=== PATIENT | male | born 1950 | race Caucasian/White ===

== ENCOUNTER → 2017-12-07 10:06 | Outpatient (CLI) | payer OTHER, SELFPAY | DX: Z23 Encounter for immunization (principal) | CPT/HCPCS: 90471; 90662 ==

== ENCOUNTER → 2020-04-16 09:59 | Outpatient (CLI) | payer OTHER, SELFPAY ==
[2020-04-16] MEDS: COVID-19 VACC #1, MRNA(MOD) 100 MCG/0.5 ML VIAL IM (10:02)
== END ==
PROVIDERS: PCP Family Medicine; Visit Provider Internal Medicine
DX: Z23 Encounter for immunization (principal)
CPT/HCPCS: 0011A; 91301

== ENCOUNTER → 2020-05-14 10:14 | Outpatient (CLI) | payer OTHER, SELFPAY ==
[2020-05-14] MEDS: COVID-19 VACC #2, MRNA(MOD) 100 MCG/0.5 ML VIAL IM (10:22)
== END ==
PROVIDERS: PCP Family Medicine; Visit Provider Internal Medicine
DX: Z23 Encounter for immunization (principal)
CPT/HCPCS: 0012A; 91301

== ENCOUNTER → 2020-06-29 08:54 | Outpatient (CLI) | payer OTHER, SELFPAY ==
[2020-06-29 09:34] LABS: Add Manual Diff / Slide Review NO; Basophils Absolute Auto 100 /uL (0-100); Basophils Percent Auto 1.1 % (0-2); Eosinophils Absolute Auto 300 /uL (0-450); Eosinophils Percent Auto 6.9 % (2-4); Hematocrit 47.7 % (41-53); Hemoglobin 16.4 g/dL (13.5-17.5); Lymphocytes Absolute Auto 1000 /uL (1100-4500); Lymphocytes Percent Auto 20.5 % (25-40); Mean Corpuscular HGB Conc 34.3 % (30-36); Mean Corpuscular Hemoglobin 31.6 PG (26-34); Mean Corpuscular Volume 92.1 fL (80-100); Monocytes Absolute Auto 400 /uL (0-900); Monocytes Percent Auto 9.3 % (3-14); Neutrophils Absolute Auto 3000 /uL (1500-7000); Neutrophils Percent Auto 62.2 % (50-75); Platelet Count 210 X10^3/uL (150-400); Red Blood Cell Count 5.18 X10^6/uL (4.5-5.9); Red Cell Distribution Width 12.8 % (11.6-14.8); White Blood Cell Count 4.8 X10^3/uL (4.5-11.0)
[2020-06-29 10:39] LABS: Alanine Aminotransferase 27 IU/L (<50); Albumin 4.4 g/dL (3.5-5.0); Albumin Globulin Ratio 1.3 (1.0-2.8); Alkaline Phosphatase 76 U/L (38-126); Aspartate Aminotransferase 32 IU/L (17-59); BUN Creatinine Ratio 23.1 (6-22); Bilirubin Total 0.6 mg/dL (0.2-1.3); Blood Urea Nitrogen 21 mg/dL (9-20); Calcium 9.8 mg/dL (8.4-10.2); Carbon Dioxide 30 mmol/L (22-32); Chloride 103 mmol/L (98-107); Cholesterol 231 mg/dL (140-199); Estimated Glomerular Filt Rate > 60.0 mL/min (>60); Globulin 3.4 g/dL (1.7-4.1); Glucose 94 mg/dL (80-110); HDL Cholesterol 39 mg/dL (40-60); HEMOLYSIS < 15 (0-50); LDL Cholesterol Calculated 162 mg/dL (<100); Potassium 4.4 mmol/L (3.4-5.1); Sodium 139 mmol/L (137-145); Total Protein 7.8 g/dL (6.3-8.2); Triglycerides 152 mg/dL (35-150)
[2020-06-29 11:03] LABS: Prostate Specific Antigen Scrn 3.09 ng/mL (0.1-4.0)
[2020-06-29 11:08] LABS: TSH w/ Reflex to FT4 1.88 uIU/mL (0.47-4.68)
[2020-06-30 10:52] LABS: Fecal Immunochemical Test Negative (Negative)
== END ==
PROVIDERS: PCP Family Medicine; Referring Provider Family Medicine; Visit Provider Family Medicine
DX: Z00.00 Encounter for general adult medical examination without abnormal findings (principal); Z12.5 Encounter for screening for malignant neoplasm of prostate; Z13.220 Encounter for screening for lipoid disorders; Z13.228 Encounter for screening for other metabolic disorders; Z13.29 Encounter for screening for other suspected endocrine disorder; Z12.11 Encounter for screening for malignant neoplasm of colon
CPT/HCPCS: 36415; 80053; 80061; 82274; 84443; 85025; G0103

== ENCOUNTER → 2021-07-31 08:07 | Outpatient (CLI) | payer OTHER, SELFPAY ==
[2021-07-31 09:24] LABS: Add Manual Diff / Slide Review NO; Basophils Absolute Auto 100 /uL (0-100); Basophils Percent Auto 1.3 % (0-2); Eosinophils Absolute Auto 200 /uL (0-450); Eosinophils Percent Auto 4.1 % (2-4); Hematocrit 44.2 % (41-53); Hemoglobin 15.4 g/dL (13.5-17.5); Lymphocytes Absolute Auto 1100 /uL (1100-4500); Mean Corpuscular HGB Conc 34.9 % (30-36); Mean Corpuscular Hemoglobin 31.7 PG (26-34); Mean Corpuscular Volume 90.9 fL (80-100); Monocytes Absolute Auto 400 /uL (0-900); Monocytes Percent Auto 9.2 % (3-14); Neutrophils Absolute Auto 2900 /uL (1500-7000); Neutrophils Percent Auto 61.4 % (50-75); Platelet Count 173 X10^3/uL (150-400); Red Blood Cell Count 4.86 X10^6/uL (4.5-5.9); Red Cell Distribution Width 12.8 % (11.6-14.8); White Blood Cell Count 4.7 X10^3/uL (4.5-11.0)
[2021-07-31 09:43] LABS: Albumin 4.2 g/dL (3.5-5.0); Albumin Globulin Ratio 1.4 (1.0-2.8); Bilirubin Total 0.8 mg/dL (0.2-1.3); Blood Urea Nitrogen 15 mg/dL (9-20); Carbon Dioxide 31 mmol/L (22-32); Chloride 103 mmol/L (98-107); Cholesterol 186 mg/dL (140-199); Glucose 106 mg/dL (80-110); HDL Cholesterol 43 mg/dL (40-60); HEMOLYSIS < 15 (0-50); LDL Cholesterol Calculated 118 mg/dL (<100); Potassium 4.2 mmol/L (3.4-5.1); Sodium 138 mmol/L (137-145); Total Protein 7.2 g/dL (6.3-8.2); Triglycerides 125 mg/dL (35-150)
[2021-07-31 09:47] LABS: BUN Creatinine Ratio 16.1 (6-22); Estimated Glomerular Filt Rate > 60 mL/min (>60)
[2021-07-31 09:48] LABS: Alanine Aminotransferase 25 IU/L (<50); Alkaline Phosphatase 71 U/L (38-126); Aspartate Aminotransferase 29 IU/L (17-59)
[2021-07-31 10:53] LABS: Prostate Specific Antigen Scrn 2.57 ng/mL (0.1-4.0)
[2021-08-02 12:42] LABS: Fecal Immunochemical Test Negative (Negative)
== END ==
PROVIDERS: PCP Family Medicine; Referring Provider Family Medicine; Visit Provider Family Medicine
DX: Z00.00 Encounter for general adult medical examination without abnormal findings (principal); E78.5 Hyperlipidemia, unspecified; Z12.5 Encounter for screening for malignant neoplasm of prostate
CPT/HCPCS: 36415; 80053; 80061; 82274; 85025; G0103

== ENCOUNTER 2021-12-14 11:44 | Emergency (ER) | payer OTHER, SELFPAY ==
[2021-12-14 12:21] VITALS: BP 156/81; PULSE 60; RESP 16; TEMP 36.6; O2SAT 97; BMI 28.5
--- NOTE | 2021-12-14 12:22 | DI.RAD.S_ITS ---
PROCEDURE: XR HAND RT MIN 3V INDICATIONS: stuck in a fan belt portia TECHNIQUE: 3 views of the hand(s) acquired. COMPARISON: None. FINDINGS: Bones: There is a nondisplaced fracture at the tuft of the 4th distal phalanx. Carpal bones are normally aligned. No suspicious bony lesions. Soft tissues: No suspicious soft tissue calcifications. IMPRESSION: Nondisplaced 4th distal phalanx tuft fracture. Dictated by: Adry Garland M.D. on 12/14/2021 at 12:45 Approved by: Adry Garland M.D. on 12/14/2021 at 12:49
[2021-12-14] MEDS: LIDOCAINE 1% (PF) 5 ML INJ (13:48)
--- NOTE | 2021-12-14 14:16 | ED_ITS ---
HPI - Extremity Injury (Upper) <Ruddy Jimenez PA-C - Last Filed: 12/14/21 15:34> General Chief Complaint: Extremity Injury, Upper Stated Complaint: Finger got stuck in portia Time Seen by Provider: 12/14/21 13:27 History of Present Illness HPI narrative: 71-year-old male presents to the emergency room status post a right 4th finger injury sustained just prior to arrival. 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 Patient states that he was able to get his finger out with some difficulty after the belt was cut off. Patient's last tetanus is unknown. Patient denies numbness, tingling, weakness. Patient states that his finger did not bleed much at all. Related Data Previous Rx's Medication Instructions Recorded pravastatin 20 mg tablet 20 mg PO BEDTIME #90 tabs 07/30/21 cephalexin 500 mg capsule 500 mg PO Q8H 5 days #15 caps 12/14/21 Allergies Allergy/AdvReac Type Severity Reaction Status Date / Time Sulfa (Sulfonamide Allergy Unknown Verified 06/29/20 08:18 Antibiotics) Review of Systems <Ruddy Jimenez PA-C - Last Filed: 12/14/21 15:34> Review of Systems ROS Unobtainable: All systems reviewed & are unremarkable except as noted in HPI and below Constitutional Constitutional: Denies chills, Denies fatigue, Denies fever(s), Denies frequent falls, Denies lethargy and Denies weakness Eyes Eyes: Denies change in vision, Denies eye discharge, Denies irritation and Denies loss of vision ENT Ears, Nose, Mouth, and Throat: Denies change in voice, Denies dizziness, Denies neck pain, Denies sore throat and Denies throat swelling Cardiovascular Cardiovascular: Denies chest pain, Denies irregular heart rhythm, Denies lightheadedness, Denies palpitations, Denies dyspnea, Denies dyspnea on exertion and Denies orthopnea Respiratory Respiratory: Denies cough, Denies dyspnea, Denies dyspnea on exertion and Denies wheezing Gastrointestinal Gastrointestinal: Denies abdominal pain, Denies change in bowel habits, Denies diarrhea, Denies nausea and Denies vomiting Genitourinary Genitourinary: Denies hematuria, Denies flank pain, Denies urinary incontinence and Denies urinary urgency Musculoskeletal Musculoskeletal: Denies back pain, Denies muscle weakness, Denies neck pain, Denies numbness and Denies tingling Comments: Right 4th finger injury Integumentary/Breasts Skin/Breast: Denies pruritus, Denies erythema, Denies rash and Denies wounds Neurologic Neurologic: Denies behavioral changes, Denies confusion, Denies dizziness, Denies frequent falls, Denies loss of vision, Denies numbness, Denies tingling and Denies weakness Psychiatric Psychiatric: Denies anxiety, Denies behavioral changes, Denies confusion, Denies depression, Denies homicidal ideation and Denies suicidal ideation Endocrine Endocrine: Denies fatigue, Denies flushing and Denies palpitations Hematologic/Lymphatic Hematologic/Lymphatic: Denies easy bruising Allergic/Immunologic Allergic/Immunologic: Denies urticaria, Denies throat swelling and Denies wheezing Patient History <Ruddy Jimenez PA-C - Last Filed: 12/14/21 15:34> Medical History Acne (~1961) Cataracts, bilateral (~05/22/16) Chicken pox (~1957) Hyperlipidemia Measles (~1958) Mumps (~1956) Strain of tendon of left rotator cuff Tinnitus (~06/19/15) Well adult exam Surgical History Anesthesia History of cataract removal with insertion of prosthetic lens (~2016) History of foot surgery (~2008) Family History Father Stroke Mother Cancer Social History Smoking Status: Current every day smoker Tobacco: How many years used: 30 quit status: considering quitting second hand exposure: No alcohol intake: current (2 Beers per week ) substance use type: does not use Smoking Status: Current every day smoker Exam <Ruddy Jimenez PA-C - Last Filed: 12/14/21 15:34> Narrative Exam Narrative: Const General:?cooperative, healthy appearing and comfortable HENNY Head:?normal to inspection Ears:?hearing grossly normal bilaterally Nose:?external nose normal Face and sinus:?normal facial exam and sinuses nontender Mouth:?oral mucosae normal Throat:?posterior oropharynx normal Eyes General:?appearance normal, both eyes and all related structures Neck Neck:?normal visual inspection and no lymphadenopathy noted Resp Effort & Inspection:?normal respiratory effort Auscultation:?clear to auscultation bilaterally Cardio Rate:?regular rate Rhythm:?regular rhythm Musculoskeletal/integumentary Full range of motion, strength and sensation intact. Patient is neurovascularly intact. Right 4th distal finger tip with some sign of dried blood, no active bleeding, no laceration visualized. Tender to palpation. Neuro General:?patient alert, patient awake and patient oriented x3 Initial Vital Signs Initial Vital Signs: Vital Signs Temperature 98 F 12/14/21 12:21 Pulse Rate 60 12/14/21 12:21 Respiratory Rate 16 12/14/21 12:21 Blood Pressure 156/81 H 12/14/21 12:21 Pulse Oximetry 97 12/14/21 12:21 Oxygen Delivery Method 12/14/21 12:21 <Gayathri Reyes DO - Last Filed: 12/14/21 19:36> Initial Vital Signs Initial Vital Signs: Vital Signs Temperature 98 F 12/14/21 12:21 Pulse Rate 60 12/14/21 12:21 Respiratory Rate 16 12/14/21 12:21 Blood Pressure 156/81 H 12/14/21 12:21 Pulse Oximetry 97 12/14/21 12:21 Oxygen Delivery Method 12/14/21 12:21 Course <Ruddy Jimenez PA-C - Last Filed: 12/14/21 15:34> Orders Ordered: ED Orders 12/14/21 12:22 XR hand RT min 3V Stat Discontinued Medications Diphtheria/Tetanus/Acell Pertussis (Tet,Diph,Pertuss(Acell),Vac/Pf 0.5 Ml Syringe) 0.5 ml IM .ONCE ONE Stop: 12/14/21 14:05 Last Admin: 12/14/21 14:18 Dose: 0.5 ml Documented By: BT Lidocaine HCl (Lidocaine 1% (Pf) 5 Ml) 5 ml INJ NOW ONE Stop: 12/14/21 13:32 Lidocaine HCl (Lidocaine 1% (Pf) 5 Ml) 5 ml INJ NOW ONE Stop: 12/14/21 13:33 Last Admin: 12/14/21 13:48 Dose: 5 ml Documented By: BT Vital Signs Vital signs: Vital Signs - 8 hr 12/14/21 12:21 Temperature 98 F Pulse Rate 60 Respiratory Rate 16 Blood Pressure 156/81 H Pulse Oximetry 97 Oxygen Delivery Method Room Air <Gayathri Reyes DO - Last Filed: 12/14/21 19:36> Orders Ordered: ED Orders 12/14/21 12:22 XR hand RT min 3V Stat Discontinued Medications Diphtheria/Tetanus/Acell Pertussis (Tet,Diph,Pertuss(Acell),Vac/Pf 0.5 Ml Syringe) 0.5 ml IM .ONCE ONE Stop: 12/14/21 14:05 Last Admin: 12/14/21 14:18 Dose: 0.5 ml Documented By: BT Lidocaine HCl (Lidocaine 1% (Pf) 5 Ml) 5 ml INJ NOW ONE Stop: 12/14/21 13:32 Lidocaine HCl (Lidocaine 1% (Pf) 5 Ml) 5 ml INJ NOW ONE Stop: 12/14/21 13:33 Last Admin: 12/14/21 13:48 Dose: 5 ml Documented By: BT Vital Signs Vital signs: Vital Signs - 8 hr 12/14/21 12:21 Temperature 98 F Pulse Rate 60 Respiratory Rate 16 Blood Pressure 156/81 H Pulse Oximetry 97 Oxygen Delivery Method Room Air MDM - Extremity Injury (Upper) <Ruddy Jimenez PA-C - Last Filed: 12/14/21 15:34> Imaging Data Extremity x-ray #1: Radiologist's Impression: PROCEDURE:? XR HAND RT MIN 3V ? INDICATIONS:? stuck in a fan belt portia ? TECHNIQUE:? 3 views of the hand(s) acquired.? ? COMPARISON:? None. ? FINDINGS:? ? Bones:? There is a nondisplaced fracture at the tuft of the 4th distal phalanx.? Carpal bones are normally aligned.? No suspicious bony lesions.? ? Soft tissues:? No suspicious soft tissue calcifications.? ? ? IMPRESSION:? Nondisplaced 4th distal phalanx tuft fracture.? ? Dictated by: Adry Garland M.D. on 12/14/2021 at 12:45 ? ? Approved by: Adry Garland M.D. on 12/14/2021 at 12:49 ? MDM Narrative Medical decision making narrative: 71-year-old male presents to the emergency room status post a right 4th finger injury sustained just prior to arrival. Concern for laceration versus fracture/dislocation. X-ray was obtained, which shows a nondisplaced tuft fracture of the distal right 4th phalanx. Tetanus was updated, patient started on antibiotics. Finger was placed in extension with the splint. ED return precautions, signs of infection discussed with patient. Patient verbalized understanding. Discharge Plan Departure Patient Disposition: Home Clinical Impression: Finger fracture, right Instructions: DI for Finger Fracture Activity Restrictions/Additional Instructions: You were evaluated in the ED today for a finger injury. Your x-ray shows a small nondisplaced fracture at the tip of your 4th finger in the right hand. You have a small injury to the skin, however it does not need any repair. You of being prescribed antibiotics. Please complete the full course of antibiotics. Your finger has been put in a splint, please continue to wear the splint for the next 4-6 weeks until your fracture heals. If you notice any signs of infection such as redness, swelling, discharge, warmth, or you experience tingling, numbness, weakness, please return to the ED. Prescriptions: New cephalexin 500 mg capsule 500 mg PO Q8H 5 Days Qty: 15 0RF No Action pravastatin 20 mg tablet 20 mg PO BEDTIME Qty: 90 3RF Referrals: Surjit Bishop DO [Primary Care Provider] - Visit Report Forms: Patient Portal/API <Gayathri Reyes DO - Last Filed: 12/14/21 19:36> [facility] Attestation: I was immediately available in the department for consultation. Documentation has been reviewed. I agree with assessment and plan.
[2021-12-14] MEDS: TET,DIPH,PERTUSS(ACELL),VAC/PF 0.5 ML SYRINGE IM (14:18)
== END 2021-12-14 14:54 | disposition home or self-care (01) ==
PROVIDERS: Emergency Provider Student in an Organized Health Care Education/Training Program; PCP Family Medicine
DX: S62.664A Nondisplaced fracture of distal phalanx of right ring finger, initial encounter for closed fracture (principal); W23.0XXA Caught, crushed, jammed, or pinched between moving objects, initial encounter; Z23 Encounter for immunization; Y99.0 Civilian activity done for income or pay
CPT/HCPCS: 73130; 90471; 99283; 99284; 90715

== ENCOUNTER → 2022-02-04 10:47 | Outpatient (CLI) | payer OTHER, SELFPAY ==
--- NOTE | 2022-02-04 10:48 | DI.RAD.S_ITS ---
PROCEDURE: XR HAND RT MIN 3V INDICATIONS: right finger fracture TECHNIQUE: 3 views of the hand(s) acquired. COMPARISON: [facility], , XR HAND RT MIN 3V, 12/14/2021, 12:25. FINDINGS: Bones: Less prominent appearance of previously noted 4th distal phalanx tuft fracture. Soft tissues: No suspicious soft tissue calcifications. IMPRESSION: Less prominent appearance of 4th distal phalanx tuft fracture. Dictated by: Adry Garland M.D. on 02/04/2022 at 14:36 Approved by: Adry Garland M.D. on 02/04/2022 at 14:37
== END ==
PROVIDERS: PCP Family Medicine; Referring Provider Family Medicine; Visit Provider Family Medicine
DX: S62.634A Displaced fracture of distal phalanx of right ring finger, initial encounter for closed fracture (principal); X58.XXXA Exposure to other specified factors, initial encounter
CPT/HCPCS: 73130

== ENCOUNTER → 2023-07-06 11:24 | Outpatient (CLI) | payer OTHER, SELFPAY ==
[2023-07-06 12:40] LABS: Add Manual Diff / Slide Review NO; Basophils Absolute Auto 0 /uL (0-100); Basophils Percent Auto 0.6 % (0-2); Eosinophils Absolute Auto 300 /uL (0-450); Eosinophils Percent Auto 4.5 % (2-4); Hematocrit 45.3 % (41-53); Hemoglobin 15.5 g/dL (13.5-17.5); Lymphocytes Absolute Auto 1400 /uL (1100-4500); Lymphocytes Percent Auto 24.3 % (25-40); Mean Corpuscular HGB Conc 34.3 % (30-36); Mean Corpuscular Hemoglobin 31.8 PG (26-34); Mean Corpuscular Volume 92.8 fL (80-100); Monocytes Absolute Auto 400 /uL (0-900); Monocytes Percent Auto 7.7 % (3-14); Neutrophils Absolute Auto 3500 /uL (1500-7000); Neutrophils Percent Auto 62.9 % (50-75); Platelet Count 186 X10^3/uL (150-400); Red Blood Cell Count 4.88 X10^6/uL (4.5-5.9); Red Cell Distribution Width 13.1 % (11.6-14.8); White Blood Cell Count 5.6 X10^3/uL (4.5-11.0)
[2023-07-06 13:58] LABS: Alanine Aminotransferase 28 IU/L (<50); Albumin 4.4 g/dL (3.5-5.0); Albumin Globulin Ratio 1.6 (1.0-2.8); Alkaline Phosphatase 74 U/L (38-126); Aspartate Aminotransferase 30 IU/L (17-59); BUN Creatinine Ratio 20.3 (6-22); Bilirubin Total 0.8 mg/dL (0.2-1.3); Blood Urea Nitrogen 16 mg/dL (9-20); Calcium 9.3 mg/dL (8.4-10.2); Carbon Dioxide 28 mmol/L (22-32); Chloride 107 mmol/L (98-107); Cholesterol 186 mg/dL (140-199); Estimated Glomerular Filt Rate > 60 mL/min (>60); Globulin 2.8 g/dL (1.7-4.1); Glucose 90 mg/dL (80-110); HDL Cholesterol 42 mg/dL (40-60); HEMOLYSIS < 15 (0-50); LDL Cholesterol Calculated 110 mg/dL (<100); Potassium 4.4 mmol/L (3.4-5.1); Sodium 141 mmol/L (137-145); Total Protein 7.2 g/dL (6.3-8.2); Triglycerides 170 mg/dL (35-150)
== END ==
PROVIDERS: PCP Family Medicine; Referring Provider Family Medicine; Visit Provider Family Medicine
DX: Z00.00 Encounter for general adult medical examination without abnormal findings (principal); Z12.5 Encounter for screening for malignant neoplasm of prostate; E78.5 Hyperlipidemia, unspecified
CPT/HCPCS: 36415; 80053; 80061; 85025; G0103

== ENCOUNTER → 2025-02-19 10:26 | Outpatient (CLI) | payer OTHER, SELFPAY ==
--- NOTE | 2025-02-19 10:27 | DI.CT.S_ITS ---
PROCEDURE: CT LUNG LOW DOSE SCREENING INDICATIONS: screening TECHNIQUE: Noncontrast 2.0-2.5 mm thick sections acquired from the pulmonary apices to the posterior costophrenic angles. 7 mm thick axial MIP, and 5 mm coronal and sagittal reformats were then acquired. For radiation dose reduction, the following was used: automated exposure control, adjustment of mA and/or kV according to patient size. COMPARISON: None. FINDINGS: Image quality: Diagnostic. Lower Neck: No enlarged lymph nodes. Thyroid: No thyroid nodules which require sonographic follow up, per consensus guidelines. Axillae: No enlarged lymph nodes. Chest Wall: Unremarkable. Bones: Multilevel bridging osteophytes, which can be seen with DISH. No suspicious lytic or blastic osseous lesion. Lungs and Pleura: No pneumothorax or pleural effusions. No consolidation. No suspicious pulmonary nodule. A 2-3 mm nodule in the apical right upper lobe (3/70). A 2-3 mm nodule in the apicoposterior left upper lobe (3/89). Scarring adjacent to vertebral osteophytosis in the medial right lung base. Heart: Heart size is normal. No pericardial effusion. Mild calcifications of the left anterior descending coronary artery. Thoracic Vessels: The aorta and pulmonary arteries demonstrate normal size. Mediastinum and Jaymie: No enlarged lymph nodes. Esophagus: No wall thickening. No hiatal hernia. Upper Abdomen: Visualized upper abdomen solid organs and bowel loops appear normal. IMPRESSION: Bilateral 2-3 mm upper lobe nodules. LUNG-RADS 2; continue annual screening 12 months. Clinically Significant Non-pulmonary Findings: Mild calcifications of the left anterior descending coronary artery. Correlate with risk factors, symptoms, and consider cardiology referral versus lifestyle modifications. Findings of DISH. Dictated by: Mane Gerardo M.D. on 02/19/2025 at 11:40 Approved by: Mane Gerardo M.D. on 02/19/2025 at 11:44
--- NOTE | 2025-02-19 10:27 | DI.US.S_ITS ---
PROCEDURE: US ABD AORTA ANEURYSM SCREEN INDICATIONS: SCREENING TECHNIQUE: Real time scanning was performed of the aorta and iliac arteries, with image documentation. COMPARISON: None. FINDINGS: Aorta: Proximal aortic diameter measures 2.6 cm. Mid-aorta measures 2.2 cm. Distal aortic diameter is 1.8 cm. Iliac arteries: Right common iliac artery measures 1.4 cm. Left common iliac artery measures 1.3 cm. IMPRESSION: Negative for aortic aneurysm. Minimal ectasia of the proximal abdominal aorta, recommend 5 year follow-up ultrasound. Limited views of the liver appear to demonstrate hepatic steatosis. Dictated by: Sebastien Fox M.D. on 02/19/2025 at 11:53 Approved by: Sebastien Fox M.D. on 02/19/2025 at 11:55
== END ==
LOC: US 10:27
PROVIDERS: PCP Family Medicine; Referring Provider Family Medicine; Visit Provider Family Medicine
DX: Z12.2 Encounter for screening for malignant neoplasm of respiratory organs (principal); Z13.6 Encounter for screening for cardiovascular disorders; F17.210 Nicotine dependence, cigarettes, uncomplicated; R91.8 Other nonspecific abnormal finding of lung field; I25.10 Atherosclerotic heart disease of native coronary artery without angina pectoris; E78.2 Mixed hyperlipidemia
CPT/HCPCS: 71271; 76706